=== PATIENT | female | born 2000 | race Hispanic/Latino ===

== ENCOUNTER 2022-12-28 23:04 | Inpatient (IN) | payer BC ==
[2022-12-29] MEDS ORDERED: Gabapentin 100 MG CAP PO SCH (00:30)
[2022-12-29 00:42] LABS: #Monocytes 0.6 thou/uL (0.11-0.59); #Neutrophils 4.7 thou/uL (1.40-6.50); %Basophils 0.4 % (0.0-1.0); %Eosinophils 0.4 % (0.0-10.0); %Lymphocytes 29.3 % (28.0-48.0); %Monocytes 7.9 % (0.0-4.0); %Neutrophils 61.9 % (31.0-61.0); Hematocrit 34.8 % (36.0-47.0); Hemoglobin 11.4 g/dL (12.0-16.0); Mean Corpuscular HGB CONC 32.8 g/dL (32.0-36.0); Mean Corpuscular Volume 79.5 fl (78.0-98.0); Mean Platelet Volume 10.7 fL (7.4-10.4); Platelet Count 283 10x3/uL (130-400); RBC Distribution Width 14.3 % (11.5-14.5); Red Blood Cell (RBC) Count 4.38 mill/uL (4.00-5.20); White Blood Cell (WBC) Count 7.6 10x3/uL (4.8-10.8)
[2022-12-29 00:50] LABS: BHCG - Serum Negative (NEGATIVE); Pregs Control Background? CLEAR/WHITE (CLR/WHITE); Pregs Control Bar Appear? YES (CONTROL BAR)
[2022-12-29 01:08] LABS: ALT (SGPT) 41 U/L (8-55); AST (SGOT) 37 U/L (5-34); Albumin 3.7 g/dL (3.5-5.0); Alkaline Phosphatase 67 U/L (40-100); Anion Gap 13 mmol/L (10-20); BUN (Urea Nitrogen) 8 mg/dL (7.0-18.7); Bilirubin, Total 0.3 mg/dL (0.2-1.2); Calc. Creatinine Clearance 0 mL/min (70-130); Calcium 8.4 mg/dL (7.8-10.44); Carbon Dioxide 22 mmol/L (22-29); Chloride 110 mmol/L (98-107); Estimated GFR 129; Glucose 116 mg/dL (70-105); Potassium 3.5 mmol/L (3.5-5.1); Protein, Total 6.7 g/dL (6.0-8.3); Sodium 141 mmol/L (136-145)
[2022-12-29] MEDS ORDERED: Acetaminophen 325 MG TAB PO PRN (02:26)
[2022-12-29] MEDS ORDERED: Morphine 4 MG/ML VIAL ONE (02:47)
[2022-12-29] MEDS ORDERED: Ondansetron PF 4 MG/2 ML Vial ONE (02:47)
[2022-12-29] MEDS ORDERED: Dexamethasone 4 mg/ml Vial SLOW IVP SCH ×2 (03:15→03:30)
[2022-12-29] MEDS ORDERED: Ibuprofen 800 MG TAB PO PRN (06:21)
[2022-12-29 06:30] VITALS: BMI 20.5
[2022-12-29] MEDS: Acetaminophen 500 MG TAB PO SCH ×3 (06:51→21:55)
[2022-12-29] MEDS ORDERED: FLUoxetine HCl 20 MG CAP PO SCH ×2 (09:00→21:00)
[2022-12-29] MEDS: Gabapentin 300 MG CAP PO SCH ×3 (10:09→21:55)
[2022-12-29 11:03] LABS: HIV (1/2) Antibody/Antigen Non-Reactive (NonReactive); HIV 1/2 INDEX 0.18 S/CO (<1.00)
[2022-12-29] MEDS: Ketorolac Tromethamine 30 MG/ML VIAL IVP PRN ×3 (11:23→23:56)
[2022-12-29 13:31] LABS: HBSAg Index 0.33 S/CO (0-0.99); Hep B Surf Ag Non-Reactive S/CO (NonReactive); Hep C IgG Ab Non-Reactive S/CO (NonReactive); Hep C Index 0.09 S/CO (0-0.79)
[2022-12-29 13:39] LABS: Syphilis Antibody Nonreactive (Nonreactive); Syphilis Antibody Index 0.08 S/CO (<1.00 Non-Reactive)
[2022-12-29 13:50] LABS: ANA Symphony (Qualitative) Negative (Negative); ANA Symphony (Quantitative) 0.4 Ratio (< 0.7 Negative); dsDNA IgG Antibody Less than 0.6 IU/mL (<10 Negative)
[2022-12-29 14:04] LABS: Amphetamine Not Detected (NotDetected); Barbiturates Screen Not Detected (NotDetected); Benzodiazepine Screen Not Detected (NotDetected); Cocaine Metabolite Screen Not Detected (NotDetected); Methadone Not Detected (NotDetected); Methamphetamine Not Detected (NotDetected); Opiate Screen Detected (NotDetected); Oxycodone Screen Not Detected (NotDetected); Phencyclidine (PCP) Not Detected (NotDetected); THC/Cannabinoid Screen Not Detected (NotDetected); Tricyclic Screen Not Detected (NotDetected)
[2022-12-29] MEDS ORDERED: Magnevist 469MG/ML 20 ML VIAL ONE ×4 (15:39)
[2022-12-30] MEDS ORDERED: Morphine 2 MG/ML VIAL SLOW IVP SCH (01:30)
[2022-12-30] MEDS: Acetaminophen 500 MG TAB PO SCH (06:15)
[2022-12-30] MEDS: Gabapentin 300 MG CAP PO SCH (08:52)
[2022-12-30] MEDS: Ketorolac Tromethamine 30 MG/ML VIAL IVP PRN (08:53)
[2022-12-30 12:19] VITALS: BP 109/58; TEMP 98.3
[2022-12-31 07:20] LABS: HSV 1 - DNA Negative (Negative); HSV 2 - DNA Negative (Negative)
[2022-12-31 07:20] LABS: HSV 1 - DNA Negative (Negative); HSV 2 - DNA Negative (Negative)
[2022-12-31 20:39] LABS: Cytoplasmic (C-ANCA) <1:20 titer (Neg:<1:20); Myeloperoxidase AutoAbs <0.2 units (0.0-0.9); Perinuclear (P-ANCA) <1:20 titer (Neg:<1:20); Proteinase-3 AutoAbs Less than 0.2 units (0.0-0.9)
[2023-01-01 13:02] LABS: EliA RAS New Method **** NEW METHOD ****; Rheumatoid Factor IgA Antibody 1.9 IU/mL (<14 Negative); Rheumatoid Factor IgM Antibody 0.7 IU/mL (<3.5 Negative)
== END 2022-12-30 14:45 | disposition home or self-care (01) | DRG 556 ==
LOC: ERS 23:04 → 2SE 12-29 01:40
PROVIDERS: ADMIT Family Medicine; ATTEND Family Medicine
DX: R29.898 Other symptoms and signs involving the musculoskeletal system (principal); R20.0 Anesthesia of skin; R53.1 Weakness; F32.A Depression, unspecified; F41.9 Anxiety disorder, unspecified; L98.499 Non-pressure chronic ulcer of skin of other sites with unspecified severity; Z79.899 Other long term (current) drug therapy; Z98.890 Other specified postprocedural states; Z82.61 Family history of arthritis
CPT/HCPCS: 36415; 70450; 70553; 72156; 72157; 72158; 80053; 80306; 83516; 83520; 84703; 85025; 86037; 86038; 86140; 86225; 86780; 86803; 87070; 87077; 87186; 87205; 87340; 87389; 87529; A9579; J1100; J1885; J2270; J2272; J2405